=== PATIENT | male | born 1965 | race African-American/Black ===

== ENCOUNTER 2017-02-28 17:37 | Emergency (ER) | payer SELFPAY ==
--- NOTE | 2017-02-28 18:14 | EDM.PDOC ---
ED HPI GENERAL MEDICAL PROBLEM - General Chief Complaint: Genitourinary Problem Stated Complaint: PT HAS UTI Time Seen by Provider: 02/28/17 17:39 Source of Information: Reports: Patient History Limitations: Reports: No Limitations - History of Present Illness INITIAL COMMENTS - FREE TEXT/NARRATIVE: History of present illness: []Patient states that he has UTI. Feeling burning in his urine yesterday and went to the drugstore to get a medicine that stops the pain. UTIs in the past. He denies any fevers, chills or vomiting. Review of systems: As per history of present illness and below otherwise all systems reviewed and negative. Past medical history: As per history of present illness and as reviewed below otherwise noncontributory. Surgical history: As per history of present illness and as reviewed below otherwise noncontributory. Social history: No reported history of drug or alcohol abuse. Family history: As per history of present illness and as reviewed below otherwise noncontributory. Physical exam: General: Well developed, well nourished in NAD HEENT: Atraumatic, normocephalic, pupils reactive, negative for conjunctival pallor or scleral icterus, mucous membranes moist, throat clear, neck supple, nontender, trachea midline. Lungs: Clear to auscultation, breath sounds equal bilaterally, chest nontender. Heart: S1S2, regular, negative for clicks, rubs, or JVD. Abdomen: Soft, nondistended, nontender. Negative for masses or hepatosplenomegaly. Negative for costovertebral tenderness. Pelvis: Stable nontender. Genitourinary: Deferred. Rectal: Deferred. Extremities: Atraumatic, negative for cords or calf pain. Neurovascular unremarkable. Neuro: Awake, alert, oriented. Cranial nerves II through XII unremarkable. Cerebellum unremarkable. Motor and sensory unremarkable throughout. Exam nonfocal. Diagnostics: []UA positive for nitrites and few white cells Therapeutics: [] Impression: []UTI Plan: []Cipro twice a day follow-up with Dr. Noel bruce fluids return if any symptoms worsen or change Definitive disposition and diagnosis as appropriate pending reevaluation and review of above. pain upon urination Pain Score (Numeric/FACES): 7 - Related Data Allergies Allergy/AdvReac Type Severity Reaction Status Date / Time No Known Allergies Allergy Verified 12/02/17 17:52 Home Meds: Home Meds Ciprofloxacin [Ciprofloxacin HCl] 500 mg PO BID #14 tablet 02/28/17 [Rx] Past Medical History Genitourinary History: Reports: Other (See Below) Other Genitourinary History: Enlarged prostate Social & Family History - Family History Family Medical History: Noncontributory - Tobacco Use Smoking Status *Q: Never Smoker - Recreational Drug Use Recreational Drug Use: No ED ROS GENERAL - Review of Systems Review Of Systems: See Below (See history of present illness) ED EXAM, RENAL/ - Physical Exam Exam: See Below (See history of present illness) Course - Vital Signs Last Recorded V/S: Last Vital Signs Temp 98.0 F 02/28/17 17:52 Pulse 54 L 02/28/17 17:52 Resp 18 02/28/17 17:52 BP 148/88 H 02/28/17 17:52 Pulse Ox 97 02/28/17 17:52 - Orders/Labs/Meds Labs: Laboratory Tests 02/28/17 Range/Units 17:45 Urine Color YELLOW Urine Appearance CLEAR Urine pH 6.0 (5.0-8.0) Ur Specific [place] 1.015 (1.001-1.035) Urine Protein 100 (NEGATIVE) mg/dL Urine Glucose (UA) NEGATIVE (NEGATIVE) mg/dL Urine Ketones NEGATIVE (NEGATIVE) mg/dL Urine Occult Blood SMALL H (NEGATIVE) Urine Nitrite POSITIVE H (NEGATIVE) Urine Bilirubin NEGATIVE (NEGATIVE) Urine Urobilinogen 1.0 (<2.0) EU/dL Ur Leukocyte Esterase NEGATIVE (NEGATIVE) Urine RBC 3-7 (0-2/HPF) Urine WBC 1-3 (0-5/HPF) Ur Epithelial Cells RARE (NONE-FEW) Urine Bacteria FEW (NEGATIVE) Departure - Departure Time of Disposition: 18:29 Disposition: Home, Self-Care 01 Condition: Good Clinical Impression: UTI (urinary tract infection) Qualifiers: Urinary tract infection type: site unspecified Hematuria presence: with hematuria Qualified Code(s): N39.0 - Urinary tract infection, site not specified ; R31.9 - Hematuria, unspecified; R31.9 - Hematuria, unspecified - Discharge Information Prescriptions: Ciprofloxacin [Ciprofloxacin HCl] 500 mg PO BID #14 tablet Referrals: PCP,None [Primary Care Provider] - Forms: ED Department Discharge Additional Instructions: The following information is given to patients seen in the emergency department who are being discharged to home. This information is to outline your options for follow-up care. We provide all patients seen in our emergency department with a follow-up referral. The need for follow-up, as well as the timing and circumstances, are variable depending upon the specifics of your emergency department visit. If you don't have a primary care physician on staff, we will provide you with a referral. We always advise you to contact your personal physician following an emergency department visit to inform them of the circumstance of the visit and for follow-up with them and/or the need for any referrals to a consulting specialist. The emergency department will also refer you to a specialist when appropriate. This referral assures that you have the opportunity for follow-up care with a specialist. All of these measure are taken in an effort to provide you with optimal care, which includes your follow-up. Under all circumstances we always encourage you to contact your private physician who remains a resource for coordinating your care. When calling for follow-up care, please make the office aware that this follow-up is from your recent emergency room visit. If for any reason you are refused follow-up, please contact the [facility] Emergency Department at and asked to speak to the emergency department charge nurse. Ángel twice a day increase fluids, follow-up with Dr. Warner or return here if any symptoms worsen or change [facility] - Urology [address] [place] [id number]
== END 2017-02-28 18:50 | disposition home or self-care (01) ==
LOC: MW.ED 17:37
DX: N39.0 Urinary tract infection, site not specified (principal)
CPT/HCPCS: 81001; 99282; 99283

== ENCOUNTER 2017-04-14 08:00 | Observation (INO) | payer OTHER ==
[2017-04-21] MEDS ORDERED: ceFAZolin 2 GM in Premix Bag 1 BAG IV ONE (07:00)
[2017-04-21] MEDS ORDERED: Lactated Ringers 1,000 ML IV SCH (07:00)
[2017-04-21] MEDS ORDERED: Sodium Chloride 0.9% 2.5 ML Syringe FLUSH PRN ×2 (07:00→17:16)
[2017-04-21] MEDS ORDERED: Sodium Chloride 0.9% 10 ML Syringe FLUSH PRN ×2 (07:00→17:16)
--- NOTE | 2017-04-21 07:17 | PCM.PREANE ---
Preanesthetic Assessment - Anesthesia/Transfusion/Family Hx Anesthesia History: Prior Anesthesia Without Reaction Family History of Anesthesia Reaction: No Transfusion History: No Prior Transfusion(s) - Review of Systems General: No Symptoms Pulmonary: No Symptoms Cardiovascular: No Symptoms Gastrointestinal: No Symptoms Neurological: No Symptoms Other: Reports: None - Physical Assessment NPO Status Date: 04/20/17 O2 Sat by Pulse Oximetry: 96 Respiratory Rate: 16 Vital Signs: Last Vital Signs Temp 36.9 C 04/21/17 07:05 Pulse 72 04/21/17 07:05 Resp 16 04/21/17 07:05 BP 160/98 H 04/21/17 07:05 Pulse Ox 96 04/21/17 07:05 Height: 1.68 m Weight: 95.254 kg ASA Class: 2 Mental Status: Alert & Oriented x3 Airway Class: Mallampati = 1 Dentition: Reports: Normal Dentition ROM/Head Extension: Full Lungs: Clear to Auscultation, Normal Respiratory Effort Cardiovascular: Regular Rate, Regular Rhythm - Lab Values: Laboratory Last Values WBC 5.11 K/uL (4.0-11.0) 04/21/17 07:01 RBC 4.60 M/uL (4.50-5.90) 04/21/17 07:01 Hgb 13.4 g/dL (13.0-17.0) 04/21/17 07:01 Hct 38.4 % (38.0-50.0) 04/21/17 07:01 MCV 83.5 fL (80.0-98.0) 04/21/17 07:01 MCH 29.1 pg (27.0-32.0) 04/21/17 07:01 MCHC 34.9 g/dL (31.0-37.0) 04/21/17 07:01 RDW Std Deviation 40.5 fl (28.0-62.0) 04/21/17 07:01 RDW Coeff of Mick 14 % (11.0-15.0) 04/21/17 07:01 Plt Count 313 K/uL (150-400) 04/21/17 07:01 MPV 9.20 fL (7.40-12.00) 04/21/17 07:01 Neut % (Auto) 49.1 % (48.0-80.0) 04/21/17 07:01 Lymph % (Auto) 40.9 % (16.0-40.0) H 04/21/17 07:01 [place] % (Auto) 7.6 % (0.0-15.0) 04/21/17 07:01 Eos % (Auto) 2.2 % (0.0-7.0) 04/21/17 07:01 Baso % (Auto) 0.2 % (0.0-1.5) 04/21/17 07:01 Neut # (Auto) 2.5 K/uL (1.4-5.7) 04/21/17 07:01 Lymph # (Auto) 2.1 K/uL (0.6-2.4) 04/21/17 07:01 [place] # (Auto) 0.4 K/uL (0.0-0.8) 04/21/17 07:01 Eos # (Auto) 0.1 K/uL (0.0-0.7) 04/21/17 07:01 Baso # (Auto) 0.0 K/uL (0.0-0.1) 04/21/17 07:01 Nucleated RBC % 0.0 /100WBC 04/21/17 07:01 Nucleated RBCs # 0 K/uL 04/21/17 07:01 - Allergies Allergies/Adverse Reactions: Allergies Allergy/AdvReac Type Severity Reaction Status Date / Time No Known Allergies Allergy Verified 04/17/17 07:38 - Anesthesia Plan Pre-Op Medication Ordered: None - Acknowledgements Anesthesia Type Planned: Spinal Pt an Appropriate Candidate for the Planned Anesthesia: Yes Alternatives and Risks of Anesthesia Discussed w Pt/Guardian: Yes Pt/Guardian Understands and Agrees with Anesthesia Plan: Yes Additional Comments: pmh: OBSTRUCTIVE UROPATHY, ckd3 (CREAT 2.1), htn (on norvasc), GERD (on OTC meds ) PreAnesthesia Questionnaire Cardiovascular History: Reports: Hypertension Gastrointestinal History: Reports: GERD Genitourinary History: Reports: BPH - Past Surgical History Head Surgeries/Procedures: Reports: None GI Surgical History: Reports: Cholecystectomy - SUBSTANCE USE Smoking Status *Q: Never Smoker Recreational Drug Use History: No - HOME MEDS Home Medications: Home Meds Lansoprazole [Prevacid] 15 mg PO ASDIRECTED PRN 04/17/17 [History] amLODIPine Besylate [Amlodipine Besylate] 5 mg PO DAILY 04/17/17 [History] - CURRENT (IN HOUSE) MEDS Current Meds: Current Medications Lactated Ringer's (Ringers, Lactated) 1,000 mls @ 100 mls/hr IV ASDIRECTED RONA Cefazolin Sodium/Dextrose 2 gm (/ Premix) 50 mls @ 100 mls/hr IV ONETIME ONE Stop: 04/21/17 07:29 Sodium Chloride (Saline Flush) 10 ml FLUSH ASDIRECTED PRN PRN Reason: Keep Vein Open Sodium Chloride (Saline Flush) 2.5 ml FLUSH ASDIRECTED PRN PRN Reason: Keep Vein Open
[2017-04-21] MEDS ORDERED: Midazolam 1 MG/ML 2 ML SDV ONE (07:24)
[2017-04-21] MEDS ORDERED: Propofol 200 MG/20 ML SDV ONE ×3 (07:24→09:06)
[2017-04-21] MEDS ORDERED: Lidocaine 2% 5 ML SDV ONE (07:24)
[2017-04-21] MEDS ORDERED: fentaNYL 100 MCG/2 ML SDV ONE ×2 (07:24→07:26)
[2017-04-21] MEDS ORDERED: ePHEDrine 50 MG/ML SDV ONE ×2 (07:25→08:52)
[2017-04-21] MEDS ORDERED: Ondansetron 4 MG/2 ML SDV ONE (07:25)
[2017-04-21] MEDS ORDERED: Glycopyrrolate 0.2 MG/ML SDV ONE ×2 (09:13→09:14)
[2017-04-21] MEDS ORDERED: fentaNYL 100 MCG/2 ML SDV IVPUSH PRN (09:40)
[2017-04-21] MEDS ORDERED: D5 1/2 NS w/ 20 mEq/L KCl 1,000 ML IV SCH (10:00)
--- NOTE | 2017-04-21 10:08 | PCM.POSTAN ---
POST ANESTHESIA ASSESSMENT - MENTAL STATUS Mental Status: Alert, Oriented - VITAL SIGNS Pulse Rate: 101 SaO2: 96 (RA) Resp Rate: 14 Blood Pressure: 129/74 - RESPIRATORY Respiratory Status: Respiratory Rate WNL, Airway Patent, O2 Saturation Stable - CARDIOVASCULAR CV Status: Pulse Rate WNL, Blood Pressure Stable - GASTROINTESTINAL GI Status: No Symptoms - PAIN Pain Score: 0 - POST OP HYDRATION Hydration Status: Adequate & Stable - OBSERVATIONS Free Text/Narrative:: VSS, pt is doing very well, denies any pain at this time. T10 Level noted.
--- NOTE | 2017-04-21 11:07 | OR ---
SURGEON: El Warner M.D. DATE OF PROCEDURE: 04/21/2017 PREOPERATIVE DIAGNOSES: Phimosis and benign prostatic hypertrophy with obstructive symptoms. POSTOPERATIVE DIAGNOSES: Phimosis and benign prostatic hypertrophy with obstructive symptoms. OPERATION: TURP and circumcision. DESCRIPTION OF PROCEDURE: The patient was given spinal anesthesia, placed in supine position. External genital area was prepped and draped in sterile drapes. Excess foreskin was excised. Bleeding was stopped with a combination of cautery and 4-0 chromic ties. The skin edges were then reapproximated using both interrupted and running 4-0 chromic sutures. Bacitracin ointment was applied to the incision, and the patient was then placed in the dorsal lithotomy position. The was passed through the urethra into the bladder without difficulty. The 28- Arabic resectoscope was introduced and the resection was done in the usual manner, starting with the floor including removal of the median lobe, going on laterally and anteriorly. At the end of the resection, all prostatic chips were removed. Both ureteral orifices were intact. The area of the external sphincter was intact. A 22 three-way Mckeon catheter was left in the bladder, connected to the TUR drip. Estimated blood loss was 200 mL. OLEG / ALVARO /[id number]
[2017-04-21] MEDS: Bacitracin Oint 28.35 GM Tube TOP SCH ×2 (13:07→22:33)
[2017-04-21] MEDS: Belladonna Alkaloids/Opium 16.2-30 MG Supp RECTAL PRN ×2 (13:08→22:30)
[2017-04-21] MEDS: Docusate Sodium 100 MG Cap PO SCH (20:41)
[2017-04-21] MEDS: Nitrofurantoin Monohydrate/Macrocrystalline 100 MG Cap PO SCH (20:42)
[2017-04-21] MEDS: Acetaminophen/HYDROcodone 325-5 MG Tab PO PRN (22:32)
[2017-04-22] MEDS: Bacitracin Oint 28.35 GM Tube TOP SCH ×3 (06:50→21:27)
[2017-04-22] MEDS: Acetaminophen/HYDROcodone 325-5 MG Tab PO PRN ×4 (08:14→21:57)
[2017-04-22] MEDS: Nitrofurantoin Monohydrate/Macrocrystalline 100 MG Cap PO SCH ×2 (08:17→21:26)
[2017-04-22] MEDS: Docusate Sodium 100 MG Cap PO SCH ×2 (08:17→21:25)
--- NOTE | 2017-04-22 10:41 | PCM.SURGPN ---
- General Info Date of Service: 04/22/17 Date of Surgery/Procedure: 04/21/17 POD#: 1 Admission Diagnosis/Problem: BPH loc w urin obs/LUTS Functional Status: Reports: Pain Controlled - Review of Systems General: Reports: No Symptoms HEENT: Reports: No Symptoms Pulmonary: Reports: No Symptoms Cardiovascular: Reports: No Symptoms Gastrointestinal: Reports: No Symptoms Genitourinary: Reports: No Symptoms Musculoskeletal: Reports: No Symptoms Skin: Reports: No Symptoms Neurological: Reports: No Symptoms Psychiatric: Reports: No Symptoms - Patient Data Vitals - Most Recent: Last Vital Signs Temp 98.1 F 04/22/17 08:00 Pulse 68 04/22/17 08:00 Resp 18 04/22/17 08:00 BP 136/83 04/22/17 08:00 Pulse Ox 94 L 04/22/17 08:00 Weight - Most Recent: 210 lb I&O - Last 24 Hours: Intake & Output 04/21/17 04/22/17 04/22/17 19:59 03:59 11:59 Intake Total 900 79509 Output Total 80072 Balance 900 50 Lab Results Last 24 Hrs: Laboratory Results - last 24 hr 04/21/17 04/22/17 04/22/17 Range/Units 10:06 04:34 04:34 WBC 8.97 (4.0-11.0) K/uL RBC 4.54 (4.50-5.90) M/uL Hgb 13.1 (13.0-17.0) g/dL Hct 38.0 (38.0-50.0) % MCV 83.7 (80.0-98.0) fL MCH 28.9 (27.0-32.0) pg MCHC 34.5 (31.0-37.0) g/dL RDW Std Deviation 40.8 (28.0-62.0) fl RDW Coeff of Mick 14 (11.0-15.0) % Plt Count 297 (150-400) K/uL MPV 9.40 (7.40-12.00) fL Neut % (Auto) 68.9 (48.0-80.0) % Lymph % (Auto) 23.2 (16.0-40.0) % [place] % (Auto) 7.0 (0.0-15.0) % Eos % (Auto) 0.8 (0.0-7.0) % Baso % (Auto) 0.1 (0.0-1.5) % Neut # (Auto) 6.2 H (1.4-5.7) K/uL Lymph # (Auto) 2.1 (0.6-2.4) K/uL [place] # (Auto) 0.6 (0.0-0.8) K/uL Eos # (Auto) 0.1 (0.0-0.7) K/uL Baso # (Auto) 0.0 (0.0-0.1) K/uL Nucleated RBC % 0.0 /100WBC Nucleated RBCs # 0 K/uL Sodium 143 140 (136-146) mmol/L Potassium 4.5 4.3 (3.5-5.1) mmol/L Chloride 103 (98-110) mmol/L Carbon Dioxide 27 (21-31) mmol/L Anion Gap 14.3 Med Orders - Current: Current Medications Hydrocodone Bitart/Acetaminophen ([place] 325-5 Mg) 1 tab PO Q4H PRN PRN Reason: Pain Last Admin: 04/22/17 08:14 Dose: 1 tab Bacitracin (Bacitracin Oint) 1 gm TOP TID [facility] Last Admin: 04/22/17 06:50 Dose: 1 dose Belladonna Alkaloids/Opium (B & O Supprettes No. 15a) 1 supp RECTAL Q6H PRN PRN Reason: Bladder Spasms Last Admin: 04/21/17 22:30 Dose: 1 supp Docusate Sodium (Colace) 100 mg PO BID [facility] Last Admin: 04/22/17 08:17 Dose: 100 mg Nitrofurantoin Macrocrystals (Macrobid) 100 mg PO BID [facility] Last Admin: 04/22/17 08:17 Dose: 100 mg Sodium Chloride (Saline Flush) 10 ml FLUSH ASDIRECTED PRN PRN Reason: Keep Vein Open Sodium Chloride (Saline Flush) 2.5 ml FLUSH ASDIRECTED PRN PRN Reason: Keep Vein Open Sodium Chloride (Saline Flush) 10 ml FLUSH ASDIRECTED PRN PRN Reason: Keep Vein Open Sodium Chloride (Saline Flush) 2.5 ml FLUSH ASDIRECTED PRN PRN Reason: Keep Vein Open Discontinued Medications Ephedrine Sulfate (Ephedrine Sulfate) Confirm Administered Dose 50 mg .ROUTE .STK-MED ONE Stop: 04/21/17 07:26 Ephedrine Sulfate (Ephedrine Sulfate) Confirm Administered Dose 50 mg .ROUTE .STK-MED ONE Stop: 04/21/17 08:53 Fentanyl (Sublimaze) Confirm Administered Dose 100 mcg .ROUTE .STK-MED ONE Stop: 04/21/17 07:25 Fentanyl (Sublimaze) Confirm Administered Dose 100 mcg .ROUTE .STK-MED ONE Stop: 04/21/17 07:27 Fentanyl (Sublimaze) 50 mcg IVPUSH Q5M PRN PRN Reason: Pain (severe 7-10) Stop: 04/22/17 09:40 Glycopyrrolate (Robinul) Confirm Administered Dose 0.2 mg .ROUTE .STK-MED ONE Stop: 04/21/17 09:14 Glycopyrrolate (Robinul) Confirm Administered Dose 0.2 mg .ROUTE .STK-MED ONE Stop: 04/21/17 09:15 Lactated Ringer's (Ringers, Lactated) 1,000 mls @ 100 mls/hr IV ASDIRECTED [facility] Last Admin: 04/21/17 11:03 Dose: 100 mls/hr Cefazolin Sodium/Dextrose 2 gm (/ Premix) 50 mls @ 100 mls/hr IV ONETIME ONE Stop: 04/21/17 07:29 Last Admin: 04/21/17 07:36 Dose: 100 mls/hr Potassium Chloride/Dextrose/Sod Cl (D5 1/2 Ns W/ 20 Meq/L Kcl) 1,000 mls @ 125 mls/hr IV ASDIRECTED [facility] Lidocaine (Xylocaine-Mpf 2%) Confirm Administered Dose 10 ml .ROUTE .STK-MED ONE Stop: 04/21/17 07:25 Midazolam HCl (Versed 1 Mg/Ml) Confirm Administered Dose 2 mg .ROUTE .STK-MED ONE Stop: 04/21/17 07:25 Ondansetron HCl (Zofran) Confirm Administered Dose 4 mg .ROUTE .STK-MED ONE Stop: 04/21/17 07:26 Propofol (Diprivan 20 Ml) Confirm Administered Dose 400 mg .ROUTE .STK-MED ONE Stop: 04/21/17 07:25 Propofol (Diprivan 20 Ml) Confirm Administered Dose 200 mg .ROUTE .STK-MED ONE Stop: 04/21/17 08:29 Propofol (Diprivan 20 Ml) Confirm Administered Dose 200 mg .ROUTE .STK-MED ONE Stop: 04/21/17 09:07 - Exam Wound/Incisions: Healing Well General: Alert, Oriented HEENT: Pupils Equal, Pupils Reactive Neck: Supple Lungs: Clear to Auscultation Cardiovascular: Regular Rate, Regular Rhythm GI/Abdominal Exam: Normal Bowel Sounds Extremities: Normal Inspection Skin: Warm Neurological: No New Focal Deficit Psy/Mental Status: Alert, Normal Affect, Normal Mood - Problem List Review Problem List Initiated/Reviewed/Updated: No - My Orders Last 24 Hours: Active Orders 24 hr Category Date Time Status Admission Status [Patient Status] [ADT] Routine ADT 04/21/17 09:56 Active Bladder Irrigation [RC] Q12H Care 04/21/17 09:55 Active Regular Diet [DIET] Diet 04/21/17 Lunch Active Acetaminophen/HYDROcodone [[place] 325-5 MG] Med 04/21/17 22:16 Active 1 tab PO Q4H PRN Bacitracin [Bacitracin Oint] Med 04/21/17 14:00 Active 1 gm TOP TID Belladonna/Opium [B & O Supprettes No. 15A] Med 04/21/17 09:54 Active 1 supp RECTAL Q6H PRN Docusate Sodium [Colace] Med 04/21/17 21:00 Active 100 mg PO BID Nitrofurantoin [place]/Macrocryst [Macrobid] Med 04/21/17 21:00 Active 100 mg PO BID Sodium Chloride 0.9% [Saline Flush] Med 04/21/17 17:16 Active 10 ml FLUSH ASDIRECTED PRN Sodium Chloride 0.9% [Saline Flush] Med 04/21/17 17:16 Active 2.5 ml FLUSH ASDIRECTED PRN Convert IV to Saline Lock [OM.PC] Routine Oth 04/21/17 17:16 Ordered Medication Orders Hydrocodone Bitart/Acetaminophen ([place] 325-5 Mg) 1 tab PO Q4H PRN PRN Reason: Pain Last Admin: 04/22/17 08:14 Dose: 1 tab Admin: 04/21/17 22:32 Dose: 1 tab Bacitracin (Bacitracin Oint) 1 gm TOP TID [facility] Last Admin: 04/22/17 06:50 Dose: 1 dose Admin: 04/21/17 22:33 Dose: 1 dose Admin: 04/21/17 13:07 Dose: 1 dose Belladonna Alkaloids/Opium (B & O Supprettes No. 15a) 1 supp RECTAL Q6H PRN PRN Reason: Bladder Spasms Last Admin: 04/21/17 22:30 Dose: 1 supp Admin: 04/21/17 13:08 Dose: 1 supp Docusate Sodium (Colace) 100 mg PO BID [facility] Last Admin: 04/22/17 08:17 Dose: 100 mg Admin: 04/21/17 20:41 Dose: 100 mg Nitrofurantoin Macrocrystals (Macrobid) 100 mg PO BID [facility] Last Admin: 04/22/17 08:17 Dose: 100 mg Admin: 04/21/17 20:42 Dose: 100 mg Sodium Chloride (Saline Flush) 10 ml FLUSH ASDIRECTED PRN PRN Reason: Keep Vein Open Sodium Chloride (Saline Flush) 2.5 ml FLUSH ASDIRECTED PRN PRN Reason: Keep Vein Open Sodium Chloride (Saline Flush) 10 ml FLUSH ASDIRECTED PRN PRN Reason: Keep Vein Open Sodium Chloride (Saline Flush) 2.5 ml FLUSH ASDIRECTED PRN PRN Reason: Keep Vein Open - Plan Plan (Free Text/Narrative):: home tomorrow
--- NOTE | 2017-04-22 18:19 | PCM48HPAN ---
Post Anesthesia Note - EVALUATION WITHIN 48HRS OF ANESTHETIC Vital Signs in Normal Range: Yes Patient Participated in Evaluation: Yes Respiratory Function Stable: Yes Airway Patent: Yes Cardiovascular Function Stable: Yes Hydration Status Stable: Yes Pain Control Satisfactory: Yes Nausea and Vomiting Control Satisfactory: Yes Mental Status Recovered: Yes
[2017-04-23] MEDS: Acetaminophen/HYDROcodone 325-5 MG Tab PO PRN ×2 (03:57→08:37)
[2017-04-23] MEDS: Bacitracin Oint 28.35 GM Tube TOP SCH (06:23)
[2017-04-23] MEDS: Docusate Sodium 100 MG Cap PO SCH (08:08)
[2017-04-23] MEDS: Nitrofurantoin Monohydrate/Macrocrystalline 100 MG Cap PO SCH (08:08)
--- NOTE | 2017-04-23 11:36 | DISCH ---
DATE OF DISCHARGE: PRIMARY CARE PHYSICIAN: Enoch Huang MD HISTORY/HOSPITAL COURSE: A 51-year-old, he was seen in the office and had obstructive urinary symptoms. He was evaluated in the office that evaluation was available in the system. He was brought in to the hospital, had a TURP done on 04/21/2017. Postoperatively did well, remained stable. The catheter was taken out on the 2nd postoperative day, he was discharged on the 2nd postoperative day. At the time of discharge, he is voiding well. He is afebrile. He is eating. He is having bowel movements. Pathology is still pending. He is sent home on Macrobid 100 mg twice daily for one week. I will see him in the office in 2 weeks for followup. OLEG JOHN /[id number]
== END 2017-04-23 12:15 | disposition home or self-care (01) ==
LOC: INTOOBSV 04-21 06:34 → MW.MS 04-21 06:34
PROVIDERS: ADMIT Urology; ATTEND Urology
DX: N40.1 Benign prostatic hyperplasia with lower urinary tract symptoms (principal); N47.1 Phimosis; N13.8 Other obstructive and reflux uropathy; R35.1 Nocturia; N18.3 Chronic kidney disease, stage 3 (moderate); I12.9 Hypertensive chronic kidney disease with stage 1 through stage 4 chronic kidney disease, or unspecified chronic kidney disease; K21.9 Gastro-esophageal reflux disease without esophagitis; Z79.899 Other long term (current) drug therapy; Z90.49 Acquired absence of other specified parts of digestive tract
CPT/HCPCS: 36415; 52601; 54161; 80048; 80051; 84132; 84295; 85018; 85025; 88305; A9270; J0690; J2250; J2405; J3010; J7120; 00914; J2704